=== PATIENT | male | born 1995 | race American Indian/Alaskan Native ===

== ENCOUNTER 2018-06-26 03:15 | Emergency (ER) | payer SELFPAY ==
[~2018-06-26 03:15] MED LIST: Albuterol-Ipratrop 3 mg / 0.5 (3 ml) UD INH ONE
[2018-06-26 03:30] VITALS: PULSE 94
[2018-06-26] MEDS ORDERED: Albuterol-Ipratrop 3 mg / 0.5 (3 ml) UD ONE (03:36)
[2018-06-26] MEDS ORDERED: Albuterol-Ipratrop 3 mg / 0.5 (3 ml) UD INH STA (03:40)
--- NOTE | 2018-06-26 04:44 | C.PDOC ---
History Of Present Illness 22 year old male with a Hx of asthma presents to the ER with asthma exacerbation. Patient states he woke up feeling tight so used his albuterol inhaler and symbicort with relief, then again at midday felt tight so he used his albuterol inhaler again, but tonight felt tight again which prompted ER visit. Patient has never been on steroids for asthma, never been intubated, does not smoke. Denies fever, cough, rhinorrhea, or sore throat. Time Seen by Provider: 06/26/18 03:37 Chief Complaint (Nursing): Shortness Of Breath History Per: Patient History/Exam Limitations: no limitations Onset/Duration Of Symptoms: Hrs Current Symptoms Are (Timing): Still Present Quality: Tightness Current Respiratory Medications: Albuterol, Other (Symbicort) Associated Symptoms: denies: Fever, Chills, Other (Cough, Rhinorrhea, Sore throat) Recent travel outside of the [place]: No Past Medical History Reviewed: Historical Data, Nursing Documentation, Vital Signs Vital Signs: Last Vital Signs Temp 97.1 F L 06/26/18 03:22 Pulse 94 H 06/26/18 03:22 Resp 24 06/26/18 03:22 BP 131/71 06/26/18 03:22 Pulse Ox 98 06/26/18 03:22 - Medical History PMH: Asthma Denies: Chronic Kidney Disease Family History: States: Unknown Family Hx - Social History Hx Alcohol Use: No Hx Substance Use: No - Immunization History Hx Tetanus Toxoid Vaccination: No Hx Influenza Vaccination: No Hx Pneumococcal Vaccination: No Review Of Systems Constitutional: Negative for: Fever, Chills Eyes: Negative for: Redness, Other (Scleral icterus) ENT: Negative for: Mouth Swelling Cardiovascular: Negative for: Chest Pain Respiratory: Positive for: Other (Tightness). Negative for: Cough, Shortness of Breath Gastrointestinal: Negative for: Nausea, Vomiting, Diarrhea Genitourinary: Negative for: Dysuria, Hematuria Musculoskeletal: Negative for: Back Pain Skin: Negative for: Rash Neurological: Negative for: Weakness, Numbness, Dizziness Physical Exam - Physical Exam Appears: Well, Non-toxic, No Acute Distress Skin: Normal Color, Warm, No Rash Head: Atraumatic, Normacephalic Eye(s): bilateral: Normal Inspection (No scleral icterus), PERRL, EOMI Ear(s): Bilateral: Normal (No drainage) Nose: Normal Oral Mucosa: Moist Throat: Normal (No swelling or injection), No Exudate, Other (Airway patent) Neck: Normal ROM, Supple Chest: Symmetrical Cardiovascular: Rhythm Regular Respiratory: No Accessory Muscle Use, Other (Exam was done after patient received duonebs: Lungs clear, normal inspiratory effort, speaking in complete sentences) Gastrointestinal/Abdominal: Soft, No Distention Back: Other (Ambulatory with upright steady gait) Extremity: Bilateral: Atraumatic, Normal ROM Pulses: Left Radial: Normal (2+), Right Radial: Normal (2+) Neurological/Psych: Oriented x3, Normal Cranial Nerves (Grossly intact) ED Course And Treatment O2 Sat by Pulse Oximetry: 98 Medical Decision Making Medical Decision Making: Patient reports he feels better after treatments, he is requesting Rx for meds, states he is ready for discharge. Disposition Counseled Patient/Family Regarding: Diagnosis, Need For Followup, Rx Given - Disposition Disposition: HOME/ ROUTINE Disposition Time: 05:20 Condition: IMPROVED Additional Instructions: PETR SCOTT, thank you for letting us take care of you today. Your provider was Hakeem Bond MD and you were treated for ASTHMA. The emergency medical care you received today was directed at your acute symptoms. If you were prescribed any medication, please fill it and take as directed. It may take several days for your symptoms to resolve. Return to the Emergency Department if your symptoms worsen, do not improve, or if you have any other problems. Please contact your doctor or call one of the physicians/clinics you have been referred to that are listed on the Patient Visit Information form that is included in your discharge packet. Bring any paperwork you were given at discharge with you along with any medications you are taking to your follow up visit. Our treatment cannot replace ongoing medical care by a primary care provider outside of the emergency department. Thank you for allowing the [facility] team to be part of your care today. 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 - Scribe Statement The provider has reviewed the documentation as recorded by the Scribe Luan Daly All medical record entries made by the Jhonatanibtez were at my direction and personally dictated by me. I have reviewed the chart and agree that the record accurately reflects my personal performance of the history, physical exam, medical decision making, and the department course for this patient. I have also personally directed, reviewed, and agree with the discharge instructions and disposition.
[2018-06-26 05:07] VITALS: BP 135/71; RESP 20; TEMP 98.2
[2018-06-26 05:08] VITALS: O2SAT 98
== END 2018-06-26 05:10 | disposition home or self-care (01) ==
LOC: C.ER 03:15
DX: J45.901 Unspecified asthma with (acute) exacerbation (principal)

== ENCOUNTER 2018-10-20 22:32 | Emergency (ER) | payer MEDICAID ==
[2018-10-20 22:52] VITALS: BP 124/78; PULSE 82; TEMP 98.2; O2SAT 95
[2018-10-20] MEDS ORDERED: Dexamethasone 4 mg/1 ml IM STA (23:06)
[2018-10-20] MEDS ORDERED: Albuterol-Ipratrop 3 mg / 0.5 (3 ml) UD ONE ×2 (23:08→23:50)
[2018-10-20] MEDS: Albuterol-Ipratrop 3 mg / 0.5 (3 ml) UD IH SCH ×2 (23:11→23:48)
--- NOTE | 2018-10-21 00:34 | C.PDOC ---
History Of Present Illness 23 year old male with Hx of asthma presents with SOB and wheezing for the past 2 days. Patient has been using his nebulizer and singulair at home with no relief. Denies fever or other URI symptoms. Time Seen by Provider: 10/20/18 22:55 Chief Complaint (Nursing): Shortness Of Breath History Per: Patient History/Exam Limitations: no limitations Onset/Duration Of Symptoms: Days (2) Current Symptoms Are (Timing): Still Present Current Respiratory Medications: See Home Med List Associated Symptoms: Other (SOB, Wheezing). denies: Fever Recent travel outside of the [place]: No Past Medical History Reviewed: Historical Data, Nursing Documentation, Vital Signs Vital Signs: Last Vital Signs Temp 98.2 F 10/20/18 22:50 Pulse 82 10/20/18 22:50 Resp 24 10/20/18 22:50 BP 124/78 10/20/18 22:50 Pulse Ox 95 10/20/18 22:50 - Medical History PMH: Asthma Denies: Chronic Kidney Disease Family History: States: Unknown Family Hx - Social History Hx Alcohol Use: No Hx Substance Use: No - Immunization History Hx Tetanus Toxoid Vaccination: No Hx Influenza Vaccination: No Hx Pneumococcal Vaccination: No Review Of Systems Constitutional: Negative for: Fever, Chills ENT: Negative for: Nose Discharge, Nose Congestion Respiratory: Positive for: Shortness of Breath, Wheezing Physical Exam - Physical Exam Appears: Non-toxic Skin: Normal Color, Warm Head: Atraumatic, Normacephalic Eye(s): bilateral: Normal Inspection Ear(s): Bilateral: Normal Nose: Normal Oral Mucosa: Moist Throat: Normal, No Erythema, No Exudate Neck: Normal, No Midline Cervical Tenderness, No Paracervical Tenderness, Supple Chest: Symmetrical, No Tenderness Cardiovascular: Rhythm Regular Respiratory: Decreased Breath Sounds, No Rales, No Rhonchi, Wheezing (Expirat ory) Neurological/Psych: Oriented x3, Normal Speech ED Course And Treatment O2 Sat by Pulse Oximetry: 95 (Room air) Progress Note: Duoneb and decadron administered. On reevaluation, patient is resting comfortably in no acute respiratory distress with clear breath sounds, able to ambulate without dyspnea, vitals are stable, will discharge home with Rx and instructions to follow up with PMD. Disposition Counseled Patient/Family Regarding: Diagnosis, Need For Followup, Rx Given - Disposition Disposition: HOME/ ROUTINE Disposition Time: 00:29 Condition: STABLE Additional Instructions: Please follow up with PMD Take medications as directed Increase PO fluids Return to ER if worse Prescriptions: Albuterol HFA [Ventolin HFA 90 mcg/actuation (8 g)] 2 puff IH [id number] #1 inhaler Albuterol 0.083% [Albuterol 0.083% Inhal Delia (2.5 mg/3 ml) UD] 2.5 mg IH TID #100 neb Budesonide/Formoterol Fumarate [Symbicort] 1 aer IH BID #1 inhaler predniSONE [Prednisone] 40 mg PO DAILY #10 tab Instructions: Asthma, Adult (DC) Forms: [facility] (Mongolian) - Clinical Impression Clinical Impression: Asthma exacerbation - 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 - Scribe Statement The provider has reviewed the documentation as recorded by the Scribe Luan Daly All medical record entries made by the Scribe were at my direction and personally dictated by me. I have reviewed the chart and agree that the record accurately reflects my personal performance of the history, physical exam, medical decision making, and the department course for this patient. I have also personally directed, reviewed, and agree with the discharge instructions and disposition.
[2018-10-21 00:43] VITALS: RESP 20
== END 2018-10-21 00:38 | disposition home or self-care (01) ==
LOC: C.ER 22:32
DX: J45.901 Unspecified asthma with (acute) exacerbation (principal)
CPT/HCPCS: 96372; 99284; J1100